=== PATIENT | female | born 1960 | race Caucasian/White ===

== ENCOUNTER 2018-11-21 15:41 | Emergency (ER) | payer MEDICAID, OTHER, SELFPAY ==
[~2018-11-21] VITALS: Ht 162.6 cm; Wt 70.6 kg
[2018-11-21 15:42] VITALS: BP 153/99
[2018-11-21] MEDS ORDERED: COLCHICINE 0.6 MG TABLET PO SCH (16:30)
--- NOTE | 2018-11-21 16:52 | NUR ---
MED ORDERED FROM PHARMACY
== END 2018-11-21 17:20 | disposition home or self-care (01) ==
LOC: ED 16:10
DX: L03.031 Cellulitis of right toe (principal); I10 Essential (primary) hypertension
CPT/HCPCS: 99283